=== PATIENT | female | born 1940 ===

== ENCOUNTER 2021-03-30 13:14 | Outpatient (CLI) | payer MEDICARE, SELFPAY ==
[2021-03-30 14:33] LABS: Basophils # 0.1 10^3/uL (0.0-0.1); Basophils % 0.5 %; Eosinophils # 0.3 10^3/uL (0.0-0.8); Eosinophils % 1.8 %; Hematocrit 32.6 % (37.0-47.0); Hemoglobin 9.6 g/dL (11.5-15.3); Lymphocytes % 13.8 %; Mean Corpuscular HGB Conc 29.4 g/dL (30.0-36.0); Mean Corpuscular Volume 98.5 fL (81-99); Monocytes # 1.2 10^3/uL (0.2-0.9); Monocytes % 7.9 %; Neutrophils # 11.06 10^3/uL (1.8-7.7); Neutrophils % 75.1 %; Nucleated Red Blood Cells % 0 %; Platelet Count 375 10^3/cmm (130-400); Red Blood Count 3.31 10^6/uL (4.1-5.3); Red Cell Distribution Width 14.5 % (12.1-15.1); White Blood Count 14.7 10^3/uL (4.0-10.0)
[2021-03-30 14:41] LABS: Alanine Aminotransferase 19 U/L (0-33); Albumin Level 2.7 g/dL (3.5-5.2); Alkaline Phosphatase 78 IU/L (35-105); Anion Gap 15.2 (5-19); Aspartate Amino Transferase 25 U/L (0-32); Blood Urea Nitrogen 8 mg/dL (8-23); Calcium 9.4 mg/dL (8.5-10.5); Carbon Dioxide 34 mmol/L (22-29); Chloride 89 mmol/L (98-107); Globulin 3.2 g/dL (1.3-4.6); Glucose 66 mg/dL (65-115); Osmolality Calculated 275 mOsm/kg (285-295); Potassium 4.2 mmol/L (3.5-5.1); Sodium 134 mmol/L (136-145); Total Bilirubin 0.2 mg/dL (0.15-1.2); Total Protein 5.9 g/dL (6.6-8.7)
== END 2021-03-30 13:15 | disposition home or self-care (01) ==
PROVIDERS: PCP Family Medicine; Visit Provider Family Medicine
DX: J18.9 Pneumonia, unspecified organism (principal)
CPT/HCPCS: 80053; 85025

== ENCOUNTER 2021-11-28 14:33 | Outpatient (CLI) | payer MEDICARE, SELFPAY ==
--- NOTE | 2021-11-28 14:45 | CT_ITS ---
WS: [id number] CT CHEST WITHOUT INTRAVENOUS CONTRAST HISTORY: reassess COVID syndrome TECHNIQUE: Contiguous 5 mm axial imaging performed on the thorax. Coronal and sagittal reformats are submitted. All CT scans at [facility] use at least one of these dose optimization techniques: automated exposure control; mA and/or kV adjustment per patient size (includes targeted exams where dose is matched to clinical indication); or iterative reconstruction. CONTRAST: None DLP: 691.20 mGy.cm COMPARISON: None available. Lungs and central airway: Hyperinflated lungs. Large bulla and blebs in the upper lung yu. There is cavitary lesion in the LEFT upper lobe with asymmetric wall thickening and central cavitation. Ent marisabel cavitary lesion measures 6.8 x 4.4 cm. In the dependent portion of this cavity is a nodule measur ing 5 x 14 mm. Correlate for possible aspergilloma. Linear area of atelectasis RIGHT lower lobe. Mild bronchiectasis at the LEFT apex. Pleura: Normal. No pleural effusion. Heart and pericardium: Normal size heart with no pericardial effusion. Mediastinum and [place]: No mediastinum or hilar adenopathy. Vessels: Mild atherosclerosis aorta. Pulmonary artery is equal to the aorta. Chest wall and lower neck: No soft tissue masses. Upper abdomen: Small hiatal hernia. No adrenal mass. Low-attenuation lesion superior pole LEFT kidney . May be a small cyst measuring 1.5 cm. Cholecystectomy with mild dilatation of the common bile duct. Osseous structures: No destructive process. CT/CT chest wo con [id number] IMPRESSION: 1. 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 2. Asymmetric cavitary lesion in the LEFT upper lobe with a dependent nodule. May be the residual of infection. Also consider aspergilloma/fungal infection.
== END 2021-11-28 14:34 | disposition home or self-care (01) ==
PROVIDERS: PCP Family Medicine; Visit Provider Internal Medicine Pulmonary Disease
DX: J43.9 Emphysema, unspecified (principal); U09.9 Post COVID-19 condition, unspecified; R91.1 Solitary pulmonary nodule
CPT/HCPCS: 71250